=== PATIENT | female | born 1995 | race Caucasian/White ===

== ENCOUNTER 2016-03-12 21:26 | Emergency (ER) | payer OTHER ==
[2016-03-12] MEDS ORDERED: HYDROcod/ACET 5/325 Prepack 6 PO STA (23:08)
[2016-03-12] MEDS ORDERED: HYDROcod/ACET 5/325 Prepack 6 PO ONE (23:09)
== END 2016-03-12 23:17 | disposition home or self-care (01) ==
DX: S09.90XA Unspecified injury of head, initial encounter (principal); M54.2 Cervicalgia; V43.62XA Car passenger injured in collision with other type car in traffic accident, initial encounter; R03.0 Elevated blood-pressure reading, without diagnosis of hypertension

== ENCOUNTER 2016-09-27 16:46 | Outpatient (CLI) | payer OTHER | END 2016-09-27 16:47 | disposition short-term general hospital (02) | LOC: EMS 16:46 | PROVIDERS: ATTEND Surgery | DX: R55 Syncope and collapse (principal) | CPT/HCPCS: A0425; A0427 ==

== ENCOUNTER 2019-05-08 14:53 | Emergency (ER) | payer OTHER ==
[2019-05-08] MEDS ORDERED: PROPARACAINE 0.5% OPHTH DROPS 15 ML LEFTEYE STA (14:56)
[2019-05-08] MEDS ORDERED: HYDROcod/ACETAM 5/325 MG TABLET PO STA (14:56)
--- NOTE | 2019-05-08 14:58 | ED Physician Documentation ---
PD HPI HEAD INJURY - Stated complaint Stated Complaint: LT EYE INJ - History obtained from History obtained from: Patient (Healthy 23-year-old woman was riding her horse with helmet and she was bucked off to the side and hit a projection on a door with her eyelid on the way down. She denies loss of consciousness or nausea. 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 : Benign prostate hypertrophy HEENT: None Psych: None Musculoskeletal: None Derm: None - Past Surgical History Past Surgical History: Yes - Present Medications Home Medications: Ambulatory Orders Medication Instructions Recorded Confirmed Hydrocodone/Acetaminophen 1 - 2 each PO Q6H PRN #14 tablet 05/08/19 [Hydrocodon-Acetaminophen 5-325] Neomycin/Poly/Dexam Ophth Oint 0.2 gm OPTH QID #2 tube 05/08/19 [Maxitrol Ophth Oint] Ondansetron Odt [Zofran] 4 mg TL Q6H PRN #10 tablet 05/08/19 Venlafaxine ER [Effexor ER] 75 mg ORAL DAILY 05/08/19 05/08/19 - Allergies Allergies/Adverse Reactions: Allergies Allergy/AdvReac Type Severity Reaction Status Date / Time No Known Drug Allergies Allergy Verified 03/12/16 21:37 - Social History Does the pt smoke?: No Smoking Status: Never smoker Does the pt drink ETOH?: No Does the pt have substance abuse?: No - Immunizations Immunizations are current?: Yes - POLST Patient has POLST: No PD ED PE NORMAL - Vitals Vital signs reviewed: Yes - General General: Alert and oriented X 3, No acute distress - HEENT HEENT: PERRL, EOMI, Other (She has a laceration of the left upper eyelid, it is through and through and goes through the eyelid margin. No facial bony tenderness. No evidence of diplopia or extraocular movement defect.) - Neck Neck: Supple, no meningeal sign, No bony TTP - Neuro Neuro: Alert and oriented X 3, t rail turner 2-12 intact, No motor deficit, No sensory deficit, Normal speech Results - Vitals Vitals: Vital Signs - 24 hr 05/08/19 15:00 Temperature 36.7 C Heart Rate 112 H Respiratory 18 Rate Blood Pressure 175/97 H O2 Saturation 99 Oxygen O2 Source Room air PD MEDICAL DECISION MAKING - ED course ED course: 23-year-old woman with head injury although does not seem severe but she has a complicated eyelid laceration. The station captain, Dr. Medellin graciously came in and repaired it beautifully. Departure - Departure Disposition: 01 Home, Self Care Clinical Impression: Eyelid laceration, left Qualifiers: Encounter type: initial encounter Qualified Code(s): S01.112A - Laceration without foreign body of left eyelid and periocular area, initial encounter Fall from horse Qualifiers: Encounter type: initial encounter Qualified Code(s): V80.010A - Animal-rider injured by fall from or being thrown from horse in noncollision accident, initial encounter Condition: Good Record reviewed to determine appropriate education?: Yes Instructions: ED Laceration Facial Sutr Tape Follow-Up: Jelani Medellin MD [Provider Admit Priv/Credential] - (Dr. Medellin would like you to follow-up with him in his clinic in [place] on Saturday, call Saturday to confirm.) Prescriptions: Hydrocodone/Acetaminophen [Hydrocodon-Acetaminophen 5-325] 1 - 2 each PO Q6H PRN #14 tablet PRN Reason: pain Neomycin/Poly/Dexam Ophth Oint [Maxitrol Ophth Oint] 0.2 gm OPTH QID #2 tube Ondansetron Odt [Zofran] 4 mg TL Q6H PRN #10 tablet PRN Reason: Nausea / Vomiting Comments: Come back for any signs of infection which would include: Redness, swelling, drainage, increased pain, or fevers. You can wash it soap and water. Keep it covered and moist with maxitrol ointment. Your blood pressure was elevated today on check into the emergency department. This does not mean that you have hypertension, it is a common phenomenon to come to the emergency department and have elevated blood pressure. I recommend that you see your primary care physician within the week to have it rechecked when you are feeling better.
[2019-05-08] MEDS ORDERED: TETANUS/DIPHTHERIA/PERTUSSIS 0.5 ML SYRINGE IM ONE (15:13)
[2019-05-08] MEDS ORDERED: LIDOCAINE 2%-EPI 1:100000 20 ML MDV SUBQ STA (15:29)
[2019-05-08] MEDS ORDERED: LIDOCAINE MPF 2%-EPI 1:200000 20 ML VIAL ONE (15:30)
[2019-05-08] MEDS ORDERED: ONDANSETRON ODT 4 MG TABLET TL STA (17:07)
[2019-05-08] MEDS ORDERED: NEOMYCIN/POLYMYX/DEXAMETH OPHTH OINT LEFTEYE STA (17:44)
[2019-05-08 17:47] VITALS: BP 160/82
--- NOTE | 2019-05-12 17:08 | PROCEDURE REPORT ---
DATE OF SERVICE: 05/08/2019 Physician: Jelani Medellin MD PREOPERATIVE DIAGNOSIS: Full-thickness lid laceration of the left upper lid without involvement of the lacrimal drainage system. POSTOPERATIVE DIAGNOSIS: Full-thickness lid laceration of the left upper lid without involvement of the lacrimal drainage system. PROCEDURE: Full-thickness lid laceration repair. SURGEON: Jelani Medellin MD ANESTHESIA: Topical cornea and local infiltration anesthesia only. COMPLICATIONS: None. OPERATIVE INDICATIONS: This is a 23-year-old woman who was riding her horse while wearing a helmet and was bucked off to the side hitting a projection on a barn door of with her eyelid on the way down. She denied loss of consciousness or nausea or vision loss or globe pain. Vision was grossly normal and the globe was grossly intact without any evidence of corneal or scleral trauma or laceration. She was seen in the Emergency Room and verbally consented for lid repair. She was given the option of waiting to see an oculoplastic surgeon in [place] or for me to perform the surgery there in the ER, to which she expressed a desire to proceed with surgery in the ER. OPERATIVE PROCEDURE: A surgical timeout was conducted confirming the eyelid in question, which was pretty obvious from the lid laceration. This was a clean procedure but kept as sterile as possible. The surrounding area of the lid was infiltrated with 2% lidocaine with epinephrine. The lid margins easily opposed without any real traction, although there was some loss of tissue above the lid margin. There was some traction in attempting to reappose the tissues above the lid margin. Using 5-0 Mersilene, 3 sutures were placed across the lid margin first through the rodriguez line and then through the posterior margin and anterior margin to oppose the margin edges. Those sutures were left long. 6-0 chromic suture was used to reappose the tarsal plate in an interrupted manner. The same chromic suture was used to reappose the orbicularis muscles. The rest of the Mersilene was used to the lid skin edges. At the end of the procedure there looked to be very good lid margin apposition as well as skin in apposition. The patient was told to use Crn-Kpan-Ulb ointment 2-4 times a day on the surgical wound and to followup with me in my clinic the following Saturday. The patient understood and seemed happy with the initial result. TD: 05/12/2019 16:19 MTDRomie
--- NOTE | 2019-05-15 08:53 | CONSULTATION NOTE ---
DATE OF SERVICE: 05/08/2019 Physician: Jelani Medellin MD I was called in on consultation for this patient on 05/08/[address] Steiner calling me about a patie nt with a left lid laceration. Came into the ER, a patient of Dr. Grewal. The patient did have a ra ther large full-thickness left upper lid laceration measuring about 8 mm in height vertically and abo ut 12 mm horizontally. After giving the patient options for surgery and telling her what the plan was, she agreed to have th e lid laceration repaired in the emergency room, which was conducted as per the operation report sepa rately documented. The patient did very well during the procedure and was discharged that evening. TD: 05/15/2019 08:34
== END 2019-05-08 18:07 | disposition home or self-care (01) ==
LOC: ED 14:53
DX: S01.112A Laceration without foreign body of left eyelid and periocular area, initial encounter (principal); S05.32XA Ocular laceration without prolapse or loss of intraocular tissue, left eye, initial encounter; V80.010A Animal-rider injured by fall from or being thrown from horse in noncollision accident, initial encounter; W22.09XA Striking against other stationary object, initial encounter; Y93.52 Activity, horseback riding
CPT/HCPCS: 12011; 90471; 90715; 99283; A9270; J3490; Q0162

== ENCOUNTER 2019-11-06 15:23 | Outpatient (CLI) | payer OTHER | END 2019-11-06 15:24 | disposition home or self-care (01) | LOC: LAB 15:23 | PROVIDERS: ATTEND Emergency Medicine | DX: Z11.1 Encounter for screening for respiratory tuberculosis (principal) | CPT/HCPCS: 36415; 81599; 86480 ==

== ENCOUNTER 2021-08-22 12:20 | Emergency (ER) | payer OTHER ==
[2021-08-22 12:34] LABS: BASOPHILS % (AUTO) 0.6 %; EOSINOPHILS % (AUTO) 0.4 %; HGB - HEMOGLOBIN 13.2 g/dL (12.0-16.0); LYMPHOCYTES # (AUTO) 1.4 10^3/uL (1.5-3.5); LYMPHOCYTES % (AUTO) 20.4 %; MEAN CORPUSCULAR HEMOGLOBIN 31.9 pg (27.0-31.0); MEAN CORPUSCULAR HGB CONC 35.7 g/dL (32.0-36.0); MEAN CORPUSCULAR VOLUME 89.4 fL (81.0-99.0); MEAN PLATELET VOLUME 9.5 fL (7.9-10.8); MONOCYTES # (AUTO) 0.4 10^3/uL (0.0-1.0); NEUTROPHILS # (AUTO) 4.9 10^3/uL (1.5-6.6); NEUTROPHILS % (AUTO) 72.2 %; PLT - PLATELET COUNT 305 10^3/uL (130-450); RED BLOOD COUNT 4.14 10^6/uL (4.20-5.40); RED CELL DISTRIBUTION WIDTH 11.9 % (12.0-15.0); WHITE BLOOD COUNT 6.8 x10^3/uL (4.8-10.8)
[2021-08-22] MEDS ORDERED: SODIUM CHLORIDE 0.9% 1,000 ML IV STA (12:35)
[2021-08-22] MEDS ORDERED: MORPHINE 2 MG/ML CARPUJECT IVP STA (12:35)
[2021-08-22] MEDS ORDERED: ONDANSETRON 4 MG/2 ML VIAL IVP STA ×2 (12:35→15:21)
[2021-08-22 12:45] LABS: BILIRUBIN,URINE NEGATIVE (NEGATIVE); GLUCOSE, URINE (UA) NEGATIVE (NEGATIVE); KETONES,URINE (UA) NEGATIVE (NEGATIVE); LEUKOCYTE ESTERASE, URINE NEGATIVE (NEGATIVE); NITRITE,URINE NEGATIVE (NEGATIVE); OCCULT BLOOD,URINE TRACE-INTA (NEGATIVE); PROTEIN,URINE NEGATIVE (NEGATIVE); UROBILINOGEN,URINE 0.2 (NORMAL) E.U./dL (NORMAL)
[2021-08-22 12:47] LABS: CLARITY,URINE CLOUDY (CLEAR); HCG UR QUAL NEGATIVE
[2021-08-22 12:47] LABS: ALBUMIN 4.4 g/dL (3.2-5.5); ALBUMIN/GLOBULIN RATIO 1.6 (1.0-2.2); BILIRUBIN,TOTAL 0.6 mg/dL (0.2-1.0); CALCIUM 9.1 mg/dL (8.5-10.3); CREATININE 0.5 mg/dL (0.4-1.0); POTASSIUM 3.7 mmol/L (3.5-5.0); TOTAL PROTEIN 7.2 g/dL (6.7-8.2)
[2021-08-22 12:59] LABS: BACTERIA,URINE Rare /HPF (None Seen); RBC,URINE 0-5 /HPF (0-5); SQUAMOUS EPITHELIAL CELL,UR RARE Squamous (<= Few); WBC,URINE 0-3 /HPF (0-5)
[2021-08-22 13:00] LABS: AMORPHOUS SEDIMENT,UR Moderate /LPF
--- NOTE | 2021-08-22 14:21 | CT Report ---
PROCEDURE: Abdomen/Pelvis WO INDICATIONS: lower abdominal pain/vomiting TECHNIQUE: Noncontrast 5 mm thick sections acquired from the diaphragms to the symphysis. 5 mm coronal and sagi ttal reformats were then performed. For radiation dose reduction, the following was used: automated exposure control, adjustment of mA and/or kV according to patient size. COMPARISON: None. FINDINGS: Image quality: Excellent. ABDOMEN: Lung bases: Lung bases are clear. Heart size is normal. Solid organs: Liver and spleen are normal in size. Gallbladder demonstrates no pericholecystic infl ammatory changes. Pancreas is normal in contours. No adrenal nodules. Kidneys are normal in size, without hydronephrosis or nephrolithiasis. Peritoneum and bowel: Unenhanced bowel loops demonstrate normal wall thickness and caliber. The appe ndix is not definitely visualized, but no secondary signs of acute appendicitis are seen at the cecal tip. No free fluid or air. Nodes and vessels: No retroperitoneal or mesenteric adenopathy by size criteria. Aorta and inferior vena cava are normal in caliber. Miscellaneous: No ventral hernias. PELVIS: Genitourinary: Bladder wall thickness is normal. Intrauterine device is seen within a retroverted ut erus. Small amount of free fluid in the pelvis is nonspecific and most likely physiologic. Miscellaneous: No inguinal hernias or adenopathy. Bones: No suspicious bony lesions. No vertebral body compression fractures. Mild levoconvex curvatu re of the lumbar spine. Bilateral pars interarticularis defects at the L4 and L5 levels without signi ficant spondylolisthesis. IMPRESSION: 1.No acute abnormality identified in the abdomen or pelvis. 2.Small amount of free fluid in the pelvis is most likely physiologic. 3.Bilateral spondylolysis at L4 and at L5 without significant spondylolisthesis. Reviewed by: Jairo Delong MD on 08/22/2021 2:20 PM PDT Approved by: Jairo Delong MD on 08/22/2021 2:20 PM PDT Station ID: [id number]
[2021-08-22] MEDS ORDERED: KETOROLAC 30 MG/ML VIAL IVP STA (15:26)
--- NOTE | 2021-08-22 15:55 | ED Physician Documentation ---
PD HPI ABD PAIN - Stated complaint Stated Complaint: ABD PX - Chief complaint Chief Complaint: Abd Pain - History obtained from History obtained from: Patient - Additional information Additional information: Patient is a 26-year-old female with no significant past medical history presenting for evaluation of Umbilical and lower abdominal tenderness that started at 3:00. The pain is sharp. She had 1 episode of dry heaves this morning. No significant diarrhea. Nothing makes the pain better or worse. It does not radiate elsewhere. She did try Percocet that she had leftover at home without improvement. No recent fevers, cough, congestion chest pain or difficulty breathing. She denies abnormal vaginal bleeding or discharge or concern for STIs.Patient has an IUD. Review of Systems Constitutional: denies: Fever Nose: denies: Congestion Cardiac: denies: Chest pain / pressure Respiratory: denies: Dyspnea, Cough GI: reports: Abdominal Pain, Nausea, Vomiting. denies: Diarrhea : denies: Dysuria, Discharge, Vaginal bleeding Skin: denies: Rash Musculoskeletal: denies: Back pain Neurologic: reports: Headache. 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 : Benign prostate hypertrophy HEENT: None Psych: None Musculoskeletal: None Derm: None - Past Surgical History Past Surgical History: Yes - Present Medications Home Medications: Ambulatory Orders Medication Instructions Recorded Confirmed Dextroamphetamine/Amphetamine 20 mg PO DAILY 08/22/21 08/22/21 [Adderall 20 mg Tablet] Ondansetron Odt [Zofran] 4 mg TL Q6H PRN #10 tablet 08/22/21 Oxycodone HCl/Acetaminophen 1 each PO Q6H PRN #14 tablet 08/22/21 [Percocet 5-325 mg Tablet] - Allergies Allergies/Adverse Reactions: Allergies Allergy/AdvReac Type Severity Reaction Status Date / Time No Known Drug Allergies Allergy Verified 08/22/21 12:30 - Social History Does the pt smoke?: No Smoking Status: Never smoker Does the pt drink ETOH?: No Does the pt have substance abuse?: No - Immunizations Immunizations are current?: Yes - POLST Patient has POLST: No PD ED PE NORMAL - General General: Alert and oriented X 3, No acute distress, Well developed/nourished - HEENT HEENT: Atraumatic, Moist mucous membranes - Neck Neck: Supple, no meningeal sign - Cardiac Cardiac: RRR, No murmur, Strong equal pulses - Respiratory Respiratory: No respiratory distress, Clear bilaterally - Abdomen Abdomen: Normal bowel sounds, Soft, Non distended, Other (Bilateral lower quadrant abdominal tenderness, no rebound, no guarding) - Female Female : Deferred - Back Back: No CVA TTP - Derm Derm: Warm and dry - Extremities Extremities: No edema - Neuro Neuro: Normal speech - Psych Psych: Normal mood Results - Vitals Vitals: Vital Signs - 24 hr 08/22/21 08/22/21 12:26 16:15 Temperature 36.5 C 36.6 C Heart Rate 84 110 H Respiratory 16 18 Rate Blood Pressure 136/84 H 130/75 O2 Saturation 99 99 Oxygen O2 Source Room air - Labs Labs: Laboratory Tests 08/22/21 08/22/21 08/22/21 12:29 12:29 12:32 WBC 6.8 RBC 4.14 L Hgb 13.2 Hct 37.0 MCV 89.4 MCH 31.9 H MCHC 35.7 RDW 11.9 L Plt Count 305 MPV 9.5 Neut # (Auto) 4.9 Lymph # (Auto) 1.4 L Mckean # (Auto) 0.4 Eos # (Auto) 0.0 Baso # (Auto) 0.0 Absolute Nucleated RBC 0.00 Nucleated RBC % 0.0 Sodium 134 L Potassium 3.7 Chloride 102 Carbon Dioxide 24 Anion Gap 8.0 BUN 8 Creatinine 0.5 Estimated GFR (MDRD) 149 Glucose 135 H Calcium 9.1 Total Bilirubin 0.6 AST 23 ALT 25 Alkaline Phosphatase 71 Total Protein 7.2 Albumin 4.4 Globulin 2.8 Albumin/Globulin Ratio 1.6 Lipase 27 Urine Color YELLOW Urine Clarity CLOUDY Urine pH 8.0 H Ur Specific [place] 1.015 Urine Protein NEGATIVE Urine Glucose (UA) NEGATIVE Urine Ketones NEGATIVE Urine Occult Blood TRACE-INTA Urine Nitrite NEGATIVE Urine Bilirubin NEGATIVE Urine Urobilinogen 0.2 (NORMAL) Ur Leukocyte Esterase NEGATIVE Urine RBC 0-5 Urine WBC 0-3 Ur Squamous Epith Cells RARE Squamous Amorphous Sediment Moderate Urine Bacteria Rare Ur Microscopic Review INDICATED Urine Culture Comments NOT INDICATED Urine HCG, Qual NEGATIVE PD MEDICAL DECISION MAKING - ED course Complexity details: reviewed results, re-evaluated patient, d/w patient ED course: Patient presenting for evaluation of lower abdominal tenderness. Labs are essentially unremarkable, CT scan without significant abnormal findings. On repeat exam she has mild pelvic tenderness. No concern for sexually transmitted infection. Pelvic ultrasound was obtained. Preliminary with ruptured right ovarian cyst. Pt comfortable with plan for discharge and follow up. Ambulatory at discharge. 0330 - Per U/S tech, prelim with R ovarian cyst that has ruptured, no torsion. Departure - Departure Disposition: Home, Self Care Clinical Impression: Lower abdominal pain, Right ovarian cyst Condition: Stable Instructions: ED Cyst Ovarian Prescriptions: Oxycodone HCl/Acetaminophen [Percocet 5-325 mg Tablet] 1 each PO Q6H PRN #14 tablet PRN Reason: pain Ondansetron Odt [Zofran] 4 mg TL Q6H PRN #10 tablet PRN Reason: Nausea / Vomiting Comments: You were evaluated for lower abdominal pain and found to have a right ovarian cyst that has ruptured. Your labs were otherwise without significant abnormal findings and your CT did not demonstrate any abnormalities. I will send prescriptions for pain medication as well as nausea medications to [facility] pharmacy. 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 If your symptoms worsen, consider returning to the ER. I am prescribing a short course of narcotic pain medication for you. These are potentially dangerous and addictive medications that should be used carefully. These medications may constipate you. Take an ujlt-lih-[id number] stool softener (docusate) twice daily with plenty of water while taking these medications. If you go 24 hours without a bowel movement, take [id number] miralax, per package instructions. Do not drink or drive while taking these medications. If you received narcotic or sedating medications while in the emergency department, do not drive for 24 hours. Store this medication in a safe, secure place and out of reach of children. It is a violation of federal law to give or sell this medication to another person or to use in a manner other than prescribed. The ED will not refill narcotic prescriptions, including prescriptions lost or stolen. To dispose of unwanted medications: 1. [facility] at [address] in [place] has a medication drop box. They accept prescription medications (in pill form) Saturday through Saturday 9:00 a.m. to 5:00 p.m. 2. [facility] accepts prescription medications (in pill form only) for disposal year round. Call for more information. 3. Contact the [facility] for the next [facility] sponsored prescription drug collection event. , [phone], or [phone]; Note that many narcotic pain relievers also contain Tylenol/acetaminophen. Please ensure that your total dose of acetaminophen from all sources does not exceed 3 g (3000 mg) per day. Discharge Date/Time: 08/22/21 16:15
[2021-08-22 16:16] VITALS: BP 130/75
--- NOTE | 2021-08-22 18:10 | Ultrasound Report ---
PROCEDURE: Pelvic w/Transvag+Doppler Comp ultrasound INDICATIONS: sharp pelvic pain TECHNIQUE: Real-time scanning was performed of the pelvic organs, with image documentation. Additional endovagi nal scanning was necessary due to incomplete visualization of the adnexal and endometrial structures by transabdominal scanning. Doppler interrogation was performed of the ovaries bilaterally. COMPARISON: None. FINDINGS: No pathologic free abdominal or pelvic fluid. Uterus: Uterus is retroverted and normal in size at 7.7 x 3.4 x 4.4 cm. Myometrial echotexture is h omogeneous The endometrium measures 3.5 mm in combined thickness. Intrauterine device in good positi on Ovaries: Right and left ovaries measure 4.1 x 2.7 x 3.7 cm and 3.3 x 1.6 x 1.8 cm respectively. Ther e is a hyperechoic right ovary cyst 1.8 x 2.0 cm. Normal appearing arterial and venous waveforms are confirmed to each ovary.] Other: Mild to moderate amount of free fluid in the pelvis IMPRESSION: Intrauterine device in the retroverted uterus, in good position. Right ovarian hemorrhagic cyst and mild to moderate free fluid in pelvis Reviewed by: Ameya Pulido MD on 08/22/2021 5:09 PM DERRICK Approved by: Ameya Pulido MD on 08/22/2021 5:09 PM [id number] Station ID: [id number]
== END 2021-08-22 16:15 | disposition home or self-care (01) ==
LOC: ED 12:20
DX: N83.201 Unspecified ovarian cyst, right side (principal)
CPT/HCPCS: 36415; 80053; 81001; 81003; 81025; 83690; 85025; 87086; 93975; 96374; 96375; 99284